=== PATIENT | female | born 1945 | race Two or more races ===

== ENCOUNTER 2018-05-18 09:04 | Outpatient (CLI) | payer OTHER ==
[~2018-05-18 09:04] MED LIST: ADVAIR 2501 DISK W/1; CARDIZEM120 MG; GABAPENTIN600 MG; HYDRALAZINE HCL25 MG; LEVAQUIN500 MG PO; OMEPRAZOLE20 M1; PROVENTIL0.5 ML/2.5; SINGULAIR10 MG
== END 2018-05-18 09:10 | disposition home or self-care (01) ==
LOC: RAD 09:04
DX: J45.41 Moderate persistent asthma with (acute) exacerbation (principal)

== ENCOUNTER 2020-03-08 22:05 | Emergency (ER) | payer OTHER ==
[~2020-03-08] VITALS: Ht 154.9 cm; Wt 95.3 kg
== END 2020-03-09 00:22 | disposition home or self-care (01) ==
LOC: ER 22:05
DX: I16.0 Hypertensive urgency (principal); I10 Essential (primary) hypertension

== ENCOUNTER 2021-05-06 08:03 | Outpatient (CLI) | payer OTHER | END 2021-05-06 08:08 | disposition home or self-care (01) | LOC: RAD 08:03 | DX: M43.16 Spondylolisthesis, lumbar region (principal); M25.511 Pain in right shoulder; M54.2 Cervicalgia ==

== ENCOUNTER 2025-03-26 10:38 | Outpatient (CLI) | payer OTHER | END 2025-03-26 10:40 | disposition home or self-care (01) | LOC: NUCLEAR 10:38 | PROVIDERS: ATTEND Internal Medicine | DX: Z13.820 Encounter for screening for osteoporosis (principal); M81.0 Age-related osteoporosis without current pathological fracture ==